=== PATIENT | female | born 1945 | race Caucasian/White ===

== ENCOUNTER 2017-02-04 16:09 | Emergency (ER) | payer BC, MEDICARE ==
[~2017-02-04] VITALS: Ht 167.6 cm; Wt 55.9 kg
[2017-02-04 16:10] VITALS: TEMP 98.4
[2017-02-04] MEDS ORDERED: ULTRAM 50MG TAB50 MG PO (16:25)
[2017-02-04] MEDS ORDERED: ZOFRAN ODT4 MG PO (16:25)
[2017-02-04 16:42] LABS: BASO % 0.3 % (0.0-2.0); GRAN # 4.8 (1.4-6.5); GRAN % 80.3 % (42.2-75.2); HEMATOCRIT 38.3 % (37.0-47.0); HEMOGLOBIN 12.9 g/dl (12.5-16.0); LYMPH # 0.6 (1.2-3.4); LYMPH % 9.5 % (20.0-51.0); MEAN CELL VOLUME 86 fl (80.0-100.0); MEAN CORPUSCULAR HEMOGLOBIN 29 pg (27.0-31.0); MEAN CORPUSCULAR HGB CONC 34 g/dl (33.0-37.0); MEAN PLATELET VOLUME 8.9 fl (7.4-10.4); MONO # 0.5 (0.1-0.6); MONO % 8.9 % (1.7-9.3); PLATELET COUNT 204 K/mm3 (130-400); RED BLOOD COUNT 4.47 M/mm3 (4.10-5.30); REDCELL DISTRIBUTION WIDTH-CV 14.5 % (11.5-14.5)
[2017-02-04 16:53] LABS: C-REACTIVE PROTEIN 4.5 mg/dL (0.0-0.9); LIPASE 87 U/L (23-300)
[2017-02-04 17:02] LABS: B-TYPE NATRIURETIC PEPTIDE 95 pg/mL (0-125)
[2017-02-04 17:03] LABS: ERYTHROCYTE SEDIMENTATION RATE 44 mm/hr (0-30); TROPONIN-I < 0.012 ng/mL (0.000-0.034)
[2017-02-04 17:41] LABS: PH 6 (5-8); SQUAMOUS EPITHELIAL 0-2 /hpf; URINE APPEARANCE Hazy; URINE BACTERIA Rare /hpf; URINE BILIRUBIN Negative (NEGATIVE); URINE BLOOD Negative (NEGATIVE); URINE COLOR Yellow; URINE GLUCOSE Negative (NEGATIVE); URINE KETONE 2+ (NEGATIVE); URINE UROBILINOGEN Negative (NEGATIVE)
[2017-02-04 17:51] LABS: ANION GAP 16 mmol/L (7-16); BLOOD UREA NITROGEN 12 mg/dL (7-17); CALCIUM 9.8 mg/dL (8.4-10.2); CARBON DIOXIDE 26 mmol/L (22-30); CHLORIDE 94 mmol/L (98-107); CREATININE, serum 0.61 mg/dL (0.52-1.25); GLUCOSE 120 mg/dL (74-106); POTASSIUM 3.6 mmol/L (3.4-5.0); SODIUM 136 mmol/L (137-145)
[2017-02-04] MEDS ORDERED: CIPRO 500MG TA500 MG PO (18:12)
[2017-02-04] MEDS ORDERED: LIDODERM 5% PATC1 EA TP (19:12)
[2017-02-04 19:19] VITALS: BP 143/75; PULSE 100
== END 2017-02-04 19:19 | disposition home or self-care (01) ==
LOC: COL.ER 16:09
PROVIDERS: Emergency Medicine
DX: M84.58XA Pathological fracture in neoplastic disease, other specified site, initial encounter for fracture (principal); C79.51 Secondary malignant neoplasm of bone; G89.29 Other chronic pain; N39.0 Urinary tract infection, site not specified; R51 Headache
CPT/HCPCS: J2405; J7030